=== PATIENT | female | born 2005 | race African-American/Black ===

== ENCOUNTER 2024-09-13 14:05 | Emergency (ER) | payer OTHER, SELFPAY ==
[2024-09-13 14:10] VITALS: BP 156/89
[2024-09-13 14:31] LABS: Hematocrit 34.0 % (37.0-47.0); Hemoglobin 11.6 g/dL (12.0-16.0); Mean Corp Hgb Conc. 34.1 g/dL (33.0-37.0); Mean Corpuscular Volume 87.4 fL (81.0-99.0); Nucleated Red Blood Cells % 0 %; Platelet Count 374 10^3/uL (130-400); Red Cell Dist. Width 14.1 % (11.5-14.5)
[2024-09-13 14:42] LABS: HCG, Serum Qualitative Screen Negative
[2024-09-13 14:45] LABS: ALT (SGPT) 27 U/L (0-35); AST (SGOT) 29 U/L (14-36); Albumin 5.0 g/dl (3.5-5.0); Alkaline Phosphatase 80 U/L (38-126); Blood Urea Nitrogen 6 mg/dl (7-17); Calcium 10.2 mg/dl (8.4-10.2); Carbon Dioxide 23 mmol/L (22-30); Chloride 105 mmol/L (98-107); Glucose 98 mg/dl (70-99); Lipase 92 U/L (23-300); Potassium 4.3 mmol/L (3.5-5.1); Sodium 138 mmol/L (135-145); Total Protein 8.8 g/dl (6.3-8.2); eGFR > 60.00
[2024-09-13 17:18] VITALS: BMI 26.2
[2024-09-13] MEDS: TORADOL 15 MG IV (17:41)
[2024-09-13] MEDS: NSS 1000 IV (17:42)
[2024-09-13] MEDS: OMNIPAQUE 50 ML PO (17:42)
--- NOTE | 2024-09-13 18:37 | ED.GENMED ---
History of Present Illness
General
Chief Complaint: Abdominal Pain
Source: patient
Exam Limitations: none
Time Seen by Provider: 09/13/24 16:53
Nursing documentation reviewed up to this point in time: agreed with
History of Present Illness
History of Present Illness:
see MDM
Phy Exam
Physical Exam
Physical Exam:
GENERAL: Alert , in no apparent distress
EYE: pupils equal and reactive
NECK: Supple
ENT: o/p clr, mmm.
CARDIAC: Regular rate and rhythm .
LUNGS: Clear breath sounds bilaterally, no acute respiratory distress, no wheezes/rales/rhonchi
ABDOMEN: Soft, mild RLQ/R pelvic tendenress, no r/g, no cvat, normal bowel sounds
NEUROLOGICAL: Alert and oriented, no focal neuro deficits
SKIN: Warm and dry, skin intact.
PSYCH: Normal and appropriate interaction.
Course
Orders/Labs/Results
Orders:
Orders
09/13/24 14:14
Test Result ONCE
09/13/24 14:18
Complete Blood Count/With Diff Urgent
Comprehensive Metabolic Panel Urgent
HCG, Serum Qualitative Screen Urgent
Lipase Urgent
09/13/24 17:25
0.9% Sodium Chloride 1000 ml [Nss] 1,000 ml IV BOLUS
Iohexol [Omnipaque] See Protocol PO NOW STA
Ketorolac [Toradol] 15 mg IV NOW STA
US Pelvis [US Pelvis Only (non-obstetric)] Urgent
Comment:
Reason For Exam: r pelvic pain, eval torsion/ovarian ycst
09/13/24 20:35
US Pelvis Transvaginal Only Urgent
Comment:
Reason For Exam: R pelvic pain, identify flow
Abnormal Lab Results
09/13/24
14:18
RBC 3.89 L 10^6/uL
(4.20-5.40)
Hgb 11.6 L g/dL
(12.0-16.0)
Hct 34.0 L %
(37.0-47.0)
Absolute Monos (auto) 0.9 H 10^3/uL
(0.1-0.6)
Monocytes % 17.2 H %
(1.7-9.3)
BUN 6 L mg/dl
(7-17)
Total Protein 8.8 H g/dl
(6.3-8.2)
09/13/24 14:18
09/13/24 14:18
Vital Signs
Initial and Last Documented VS:
Initial Vital Signs
Temp Pulse Resp BP Pulse Ox
36.9 C 97 16 156/89 100
09/13/24 14:10 09/13/24 14:10 09/13/24 14:10 09/13/24 14:10 09/13/24 14:10
Last Documented Vital Signs
Temp Pulse Resp BP Pulse Ox
36.9 C 90 18 121/73 96
09/13/24 14:10 09/13/24 22:07 09/13/24 22:07 09/13/24 22:07 09/13/24 22:07
MDM/Problems Addressed
Differential Diagnosis Includes:
see MDM
MDM/Problems Addressed:
Note:
CHIEF COMPLAINT(S)
Abdominal pain.
HISTORY OF PRESENT ILLNESS
The patient is a 18-year-old female who presents with abdominal pain. The pain began yesterday morning. She describes the pain as worse when moving, with an intensity she rated as 7/10 at maximum. The pain is located in the lower abdomen,
particularly in the right lower quadrant,
initnally waxing and waning and then today was more constant
she went to Urgent care yesterday and they referred her to the ER, she went to [facility] where she waited a long time and LWBS.
today she went to her PCP and was referred to return to the ER to r/o appy
today the pain is constant. . The patient denies fever, nausea, vomiting, or changes in appetite. There is no indication of urinary difficulties radiating to her back.
lmp 2 weeks ago
no h/o ovarian cysts
no dysuria, hematuria, diarrhea, constipation
took tylenol earlier
PHYSICAL EXAM
- Abdominal: Right lower quadrant tenderness upon palpation. Nursing notes reviewed and vital signs reviewed.
PROBLEM LIST
Acute: Abdominal pain (suspected appendicitis or ruptured ovarian cyst).
PLAN
- The patient will undergo a Computerized Tomography (CT) scan with oral contrast to assess for appendicitis.
- An ultrasound of the pelvis will be performed to evaluate for any ovarian pathology, such as a ruptured ovarian cyst, potentially allowing avoidance of radiation exposure from a CT scan.
- The patient is instructed to refrain from urinating to properly fill the bladder for imaging.
- No allergies reported.
DIFFERENTIAL DIAGNOSIS
The Differential Diagnosis includes, in no particular order and is not limited to:
1. Appendicitis
2. Ruptured ovarian cyst
3. Pelvic inflammatory disease
4. Constipation
5. Gastroenteritis
6. Urinary tract infection
7. Ectopic
8. Endometriosis
9. Diverticulitis
10. Crohns disease
18 y/o F
RLQ pain since yesterday
no urinary syptoms, vomiting, diarrhea, fever
now constant pain
6/10
on exam well appearing, comfortable
localized tenderness RLQ
suspect more likely ovarian cyst than appe, did prep her for CT but with normal wbc, no vomiting,no fever and US showing R ovarian cysts x 2, this is more likely cause for pain
initially US did not visualize flow to ovary but transvag demonstrated flow
d/w dr. barber
recommend motrin and oitupatient f/u with shuttle spotter in 2 mo
pt has 0/10 pain on discharge after toradol
*Pulse Oximetry
SaO2: 100
Oxygen Mode of Delivery: Room air
Patient hypoxic: no (96)
*Critical Care Note
Total Time (30-74mins, 75-104mins- exclusive of procedures): Not Applicable
ED Attending Note
-
Portions of this chart may have been created with voice recognition software.� Occasional wrong word or��sound alike� substitutions may have occurred due to the inherent limitations of voice recognition software.
Discharge Plan
Departure
Patient Disposition: Home (Routine Discharge)
Date of Disposition: 09/13/24
Time of Disposition: 22:26
Patient with high blood pressure during this ER visit?: No
Condition: Fair
Covid-19: Not Applicable
Discharge Problem:
Ovarian cyst
Instructions: Ovarian Cyst (DC)
Prescriptions:
New
ibuprofen 600 mg tablet
600 mg PO Q8H PRN (Reason: Pain) Qty: 15 0RF
Referrals:
Dena Moreno CRNP, MSN [Family Provider, Pediatrics]
Chhaya Connor MD [Active, Gynecology] - Follow up in 10 days
Activity Restrictions/Additional Instructions:
YOUR PAIN IS LIKELY FROM THE 2 OVARIAN CYSTS YOU HAVE
WE DID NOT DO THE CAT SCAN TO LOOK FOR APPENDICITIS BECAUSE THERE WERE NO OTHER SIGNS LIKE FEVER, VOMITING, WHITE COUNT ELEVATION
SHOULD YOU START HAVING FEVER/VOMITING, YOU SHOULD RETURN
OTHERWISE TAKE MOTRIN 600 MG EVERY 8 HOURS WITH FOOD FOR PAIN
TYLENOL EVERY6 HOURS NEEDED
HEATING PAD OF FAND ON
FOLLOW UP WITH THE QUALITY CONTROL COORDINATOR IN 2-3 MONTHS TO SEE THAT THESE OVARIAN CYSTS SHRINK
RETURN FOR WORSENING PAIN OR ANY CONCERNS.
Interventions
Interventions:
*Risk Screen - Suicide Last Done: 09/13/24 17:18
*General Assessment Last Done: 09/13/24 17:18
*Neglect/Abuse Screening Last Done: 09/13/24 17:18
*ED- Fall Risk Assessment Last Done: 09/13/24 17:18
*ED COVID-19 Vaccine History Last Done: 09/13/24 17:18
*Nursing Disposition Last Done: 09/13/24 22:54
[facility]-C[facility]ie[facility]ys[facility] Assessment Last Done: 09/13/24 17:18
Discharge Date and Time
Discharge Date/Time: 09/13/24 22:54
Print Language: [id number]
[2024-09-13 22:07] VITALS: BP 121/73
== END 2024-09-13 22:54 | disposition home or self-care (01) ==
LOC: EMR 14:05
PROVIDERS: Emergency Medicine; EMERGENCY PHYSICIAN Emergency Medicine; FAMILY PHYSICIAN Nurse Practitioner Pediatrics
DX: N83.291 Other ovarian cyst, right side (principal)
CPT/HCPCS: 99284; 96374; 96361; 76830; 76856; 80053; 83690; 84703; 85025